=== PATIENT | female | born 1945 | race Caucasian/White ===

== ENCOUNTER 2017-03-09 09:35 | Outpatient (CLI) | payer OTHER ==
--- NOTE | 2017-03-09 11:54 | DIAGNOSTIC IMAGING REPORT ---
PROCEDURE: MG BILATERAL SCREENING W/CAD INDICATION: Screening. Family history breast carcinoma (aunt). TECHNIQUE: Bilateral CC and MLO digital views. COMPARISON: None available. FINDINGS: Computer-aided detection applied. Moderately dense and mildly nodular with scattered dystrophic calcifications. IMPRESSION: 1. Probable negative mammogram. Comparison with prior outside studies is recommended. These will be sent for. If and when these become available, an addendum can be issued this report. RESULT CODE: 0- Prior images needed. A. A negative report should not delay biopsy if a dominant or clinically suspicious mass is present. 10-15% of cancers are not identified by x-ray. B. A negative report may reinforce clinical impression. C. Adenosis and dense breasts may obscure an underlying neoplasm. D. False positive reports average 6-10%. E.. A yearly screening mammogram is recommended. A reminder letter will be scheduled.
== END 2017-03-09 23:00 ==
LOC: MAM SRH 09:35
DX: Z12.31 Encounter for screening mammogram for malignant neoplasm of breast (principal); Z80.3 Family history of malignant neoplasm of breast

== ENCOUNTER 2017-05-05 13:35 | Outpatient (CLI) | payer OTHER ==
--- NOTE | 2017-05-05 16:27 | DIAGNOSTIC IMAGING REPORT ---
PROCEDURE: US VENOUS - BILATERAL EXT INDICATION: Diabetes, lower extremity ulcers TECHNIQUE: Duplex sonography of the deep and superficial venous system in both lower extremities was performed. Compression and augmentation techniques were used. The patient was scanned in the upright position. Surveillance of the venous system during Valsalva maneuver when appropriate was performed. COMPARISON: 05/20/2015 FINDINGS: Each interrogated segment of the deep vein demonstrates normal compressibility, augmentation, and normal color Doppler flow without filling defect. No thrombus in either greater saphenous or short saphenous vein. There is venous reflux in the proximal right greater saphenous vein. Reflux duration is 1.5 seconds. The vein measures 6.5 mm in maximal diameter in the proximal segment. Mid and distal segments of the greater saphenous vein demonstrate normal venous valve closure in normal-caliber less than 5 mm. There is no venous reflux in the left greater saphenous vein. The vein measures 6.4 mm in maximal diameter in the proximal segment. There is venous reflux in the deep system bilaterally, in the right common femoral and proximal superficial femoral vein for a maximum duration of 2.6 seconds, and in the left common femoral vein for a duration of 1.9 seconds. No venous varicosities are seen. IMPRESSION: 1. Venous insufficiency seen in both common femoral veins. 2. Venous reflux in the proximal segment of the right superficial femoral vein. 3. Venous reflux seen in the proximal segment of the right greater saphenous vein. 4. No evidence of deep venous thrombosis.
--- NOTE | 2017-05-05 18:13 | DIAGNOSTIC IMAGING REPORT ---
PROCEDURE: US ART LOWER EXT WITH JASON-B/L INDICATION: DIABETIC, NON PRESSURE CHRONIC ULCER TECHNIQUE: Preexercise ABIs of the right lower extremity were performed. The patient was unable to exercise and could not tolerate ABIs of the left lower extremity. Subsequently, color Doppler duplex imaging of the lower extremities was performed. COMPARISON: Comparison made arterial vascular ultrasound of the lower extremities on 05/20/2015. FINDINGS: RIGHT LOWER EXTREMITY: ABIs: Pre exercise ABIs of the right lower extremity are normal (posterior tibial 0.9, dorsalis pedis 1.0). Postexercise ABIs could not be obtained. VESSELS: Moderate calcified atheromatous plaque. RIGHT LOWER EXTREMITY PEAK SYSTOLIC VELOCITIES: External iliac: Triphasic 213 cm/second. Common femoral artery: Triphasic 128 cm/second. Profunda femoral artery: Biphasic 113 cm/second. Proximal superficial femoral artery: Triphasic 273 cm/second. Mid superficial femoral artery: Triphasic 124 cm/second. Distal superficial femoral artery: Triphasic 242 cm/second. Popliteal artery: Triphasic 96 cm/second. Proximal posterior tibial artery: Monophasic 93 cm/second. Proximal anterior tibial artery: Biphasic 61 cm/second. Peroneal artery: N/A Distal posterior tibial artery: Biphasic 53 cm/second. Dorsalis pedis artery: Biphasic 60 cm/second. LEFT LOWER EXTREMITY: ABIs: The patient could not tolerate ABIs of the left lower extremity. VESSELS: Moderate calcified atheromatous changes. LEFT LOWER EXTREMITY PEAK SYSTOLIC VELOCITIES: External iliac: Triphasic 110 cm/second. Common femoral artery: Triphasic 174 cm/second. Profunda femoral artery: Monophasic/biphasic 64 cm/second. Proximal superficial femoral artery: Triphasic 1/55 cm/second. Mid superficial femoral artery: Triphasic 148 cm/second. Distal superficial femoral artery: Triphasic 87 cm/second. Popliteal artery: Triphasic 128 cm/second. Proximal posterior tibial artery: Monophasic 51 cm/second. Proximal anterior tibial artery: Monophasic for cm/second. Peroneal artery: N/A Distal posterior tibial artery: Biphasic 48 cm/second. Dorsalis pedis artery: Biphasic 65 cm/second. IMPRESSION: 1. Moderate calcified atheromatous change of bilateral lower extremity arterial vascular system. 2. While there is trifurcation disease of the right lower extremity (biphasic/monophasic flow), pre exercise ABIs are normal, and there is little evidence of significant arterial insufficiency. 3. While there is trifurcation disease of the left lower extremity (biphasic/monophasic flow), and even though left ankle-brachial indices could not be obtained, there is little evidence of significant arterial insufficiency.
== END 2017-05-05 23:00 | disposition home or self-care (01) ==
LOC: US SRH 13:35
DX: I87.2 Venous insufficiency (chronic) (peripheral) (principal); I70.208 Unspecified atherosclerosis of native arteries of extremities, other extremity